=== PATIENT | male | born 2000 | race Caucasian/White ===

== ENCOUNTER 2021-05-27 07:18 | Outpatient (CLI) | payer OTHER, SELFPAY ==
--- NOTE | 2021-05-27 07:25 | USCV_ITS ---
BonnieMattParish Age: 20 Gender: M : 2000 Exam Date: 05/27/2021 07:30 Ordering Phys: Constantin Mccarthy MD Technologist: Ariadne Berrios [place] [facility] [place]: TACHY BP: / HR: 47 Rhythm: Sinus Technical Quality: Adequate MEASUREMENTS (Male / Female) Normal Values 2D ECHO LV Diastolic Diameter PLAX 3.5 cm 4.2 - 5.9 / 3.9 - 5.3 cm LV Systolic Diameter PLAX 3.2 cm LV Chamber Size 3.1 cm IVS Diastolic Thickness 1.0 cm 0.6 - 1.0 / 0.6 - 0.9 cm IVS Systolic Thickness 1.3 cm LVPW Diastolic Thickness 1.2 cm 0.6 - 1.0 / 0.6 - 0.9 cm LVPW Systolic Thickness 1.1 cm RV Chamber Size 2.9 cm LVOT Diameter 2.0 cm LV Ejection Fraction 2D Teich 17.3 % LV Ejection Fraction MOD 2C 54.2 % LV Ejection Fraction 2C AL 60.0 % LA Diameter 2.6 cm LA Width 3.2 cm LA Height 3.0 cm RA Width 4.1 cm RA Height 3.6 cm Aorta at Sinotubular Diameter 2.5 cm M-MODE LV Diastolic Diameter MM 4.5 cm 4.2 - 5.9 / 3.9 - 5.3 cm LV Systolic Diameter MM 2.8 cm LV Ejection Fraction MM Teich 68.7 % IVS Diastolic Thickness MM 1.0 cm 0.6 - 1.0 / 0.6 - 0.9 cm IVS Systolic Thickness MM 1.7 cm LVPW Diastolic Thickness MM 1.3 cm 0.6 - 1.0 / 0.6 - 0.9 cm LVPW Systolic Thickness MM 1.8 cm RV Diastolic Diameter MM 2.5 cm Aortic Annulus Diameter 2.9 cm LA Ao Ratio MM 1.2 MV E Point Septal Separation 0.6 cm DOPPLER AV Peak Velocity 127.0 cm/s LVOT Peak Velocity 88.0 cm/s AV Area Cont Eq vti 2.1 cm squared AV Area Cont Eq pk 2.2 cm squared MV Area PHT 3.3 cm squared Mitral E to A Ratio 1.9 MV E' Velocity 57.0 cm/s Mitral E to MV E' Ratio 9.9 Mitral E to LV E' Lateral Ratio 10.4 Mitral E to LV E' Septal Ratio 9.6 TR Peak Velocity 153.5 cm/s TR Peak Gradient 9.4 mmHg TR Mean Velocity 107.5 cm/s TR Mean Gradient 5.6 mmHg TR Velocity Time Integral 39.9 cm TV Peak E Velocity 91.0 cm/s Right Atrial Pressure 3.0 mmHg Pulmonary Artery Systolic Pressu 12.4 mmHg PV Peak Velocity 111.0 cm/s RV Acceleration Time 0.2 s RV Ejection Time 0.4 s RV AcT/ET 0.4 FINDINGS Left Ventricle Normal left ventricular cavity size. Normal left ventricular systolic function. No regional wall motion abnormalities. Left ventricular ejection fraction is estimated at 60 %. Normal diastolic function. Right Ventricle Normal right ventricular size. Normal right ventricular systolic function. Moduraor band noted Right Atrium The right atrium is normal in size. Left Atrium The left atrium is normal in size. Mitral Valve Structurally normal mitral valve without significant stenosis or prolapse. There is no mitral regurgitation. Aortic Valve Structurally normal aortic valve without significant sclerosis or stenosis. There is no aortic regurgitation. Tricuspid Valve Structurally normal tricuspid valve. No tricuspid valve stenosis. There appeared to be subvalvular 2.0 cm long mass noted, cannot rule out vegetation versus thrombus. Clinical correlation advised. Pulmonic Valve Mild pulmonary valve regurgitation. Serpentine movable mass noted in the pulmonary artery note cannot rule out vegetation versus thrombus. Clinical correlation advised Pericardium Normal pericardium without effusion. Aorta Normal ascending aorta dimension. CONCLUSIONS 1-Normal left ventricular cavity size. Normal left ventricular systolic function. No regional wall motion abnormalities. Left ventricular ejection fraction is estimated at 60 %. Normal diastolic function. 2-Structurally normal tricuspid valve. No tricuspid valve stenosis. There appeared to be subvalvular 2.0 cm long mass noted, cannot rule out vegetation versus thrombus. Clinical correlation advised. 3-Mild pulmonary valve regurgitation. Serpentine movable mass noted in the pulmonary artery note cannot rule out vegetation versus thrombus. Clinical correlation advised. 4-There is no pericardial effusion. 5-Right atrial pressure is around 5 mm of mercury. 6-Advise clinical correlation and transesophageal echocardiogram. Findings conveyed to Dr. Constantin Mccarthy . Mili Woody MD (Electronically Signed) Final Date: 27 May 2021 19:51 S
== END 2021-05-27 07:19 | disposition home or self-care (01) ==
LOC: US 07:22
PROVIDERS: PCP Family Medicine; Visit Provider Family Medicine
DX: R00.0 Tachycardia, unspecified (principal); I37.1 Nonrheumatic pulmonary valve insufficiency
CPT/HCPCS: 93306

== ENCOUNTER 2021-05-29 09:49 | Outpatient (CLI) | payer OTHER, SELFPAY ==
--- NOTE | 2021-05-29 10:15 | CT_ITS ---
WS: [id number] CTA scan of the chest with IV contrast. Additional two-dimensional coronal and sagittal reconstructio n and MIP images was performed. 05/29/2021 Clinical Data: ATRIAL THROMBOSIS Comparison: None. DLP: 766.[address] scans at [facility] use at least one of these dose optimization techniques: automat ed exposure control; mA and/or kV adjustment per patient size (includes targeted exams where dose is matched to clinical indication); or iterative reconstruction. Findings: The central pulmonary arteries and peripheral pulmonary arteries fill normally with no evidence of in traluminal filling defects. No pulmonary embolic disease is noted. No nodules, masses or effusions are seen. The heart size is normal with no pericardial effusion. The pulmonary arterial system and thoracic aorta demonstrate no abnormalities or dilatations. No pneumoni a or pneumothorax is seen. There is no axillary or significant mediastinal adenopathy. The thyroid gl and shows normal enhancement. The trachea bifurcates into the bronchi. The upper abdomen shows no abnormalities. The visualized liver, spleen, pancreas, gallbladder, adrena l glands and superior poles of the kidneys are not remarkable. The bones of the thoracic and upper lumbar spine are not remarkable. CT/CT angio chest PE protcl [id number] Impression: 1. Negative CTA of the chest. 2. No evidence of pulmonary embolic disease.
[2021-05-29] MEDS: iohexol 350 mg/mL 100 mL Btl IV (10:34)
--- NOTE | 2021-05-29 13:30 | US_ITS ---
WS: [id number] Complete ABDOMINAL ULTRASOUND HISTORY: IVC THROMBUS COMPARISON: None available. Liver: 15.4 cm in length. Liver is normal size and echogenicity with no mass or intrahepatic dilatati on. Gallbladder: Normally distended with no gallstones, wall thickening or pericholecystic fluid. Gallbladder wall thickness: 0.3 cm. Pancreas: Normal size and echogenicity. CBD: 0.2 cm. Right kidney: 12.1 cm x 4.5 cm x 4.4 cm. No mass, cortical thickening or hydronephrosis. Left kidney: 9.2 cm x 4.6 cm x 4.2 cm. No mass, cortical thickening or hydronephrosis. Spleen: Normal size and echogenicity. Abdominal aorta and IVC are within normal limits. No thrombus noted within the IVC. No ascites. US/US abdomen complete* [id number] IMPRESSION: Normal complete abdomen ultrasound. No thrombus noted within the IVC.
--- NOTE | 2021-05-29 14:30 | USCV_ITS ---
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 In addition, the posterior tibial veins were evaluated.. In addition, the posterior tibial and peroneal trunk were evaluated. Serial compression, augmentation maneuvers, and spectral Doppler flow evaluation were performed. FINDINGS: Normal 2-D Doppler and augmentation and compressibility throughout the lower extremity venous structures. Additional imaging through the proximal calf veins also reveals no thrombus. Limited evaluation of the greater saphenous vein is patent with no thrombus. CONCLUSIONS No DVT bilateral lower extremities. Dr. Roseanne Collazo DO (Electronically Signed) Final Date: 29 May 2021 15:07 S
== END 2021-05-29 09:50 | disposition home or self-care (01) ==
PROVIDERS: PCP Family Medicine; Visit Provider Family Medicine
DX: I51.3 Intracardiac thrombosis, not elsewhere classified (principal)
CPT/HCPCS: 71275; 76700; 93970; Q9967

== ENCOUNTER 2021-05-29 11:27 | Day surgery (SDC) | payer OTHER, SELFPAY ==
[2021-05-29 11:50] VITALS: BP 130/82; PULSE 60; RESP 18; TEMP 36.9; O2SAT 98; BMI 22.2
[2021-05-29] MEDS: sodium chloride 0.9% 1,000 ML 30 ML IV (11:59)
--- NOTE | 2021-05-29 12:07 | USCV_ITS ---
Parish Nicole Age: 20 Gender: M : 2000 Exam Date: 05/29/2021 13:12 Ordering Phys: Sal Gonzalez MD Technologist: WARREN Exam Location: [facility] [place]: THROMBUS BP: / HR: Rhythm: Sinus Technical Quality: Excellent MEASUREMENTS (Male / Female) Normal Values Medications Patient given IV sedation by anesthesia service, for details please refer to the anesthesia report. The patient was administered viscous Xylocaine 2%. Complications None. Proc. Components FINDINGS Left Ventricle Normal left ventricular cavity size. Normal left ventricular systolic function. No regional wall motion abnormalities. Left ventricular ejection fraction is estimated at 60 %. Right Ventricle Normal right ventricular size. Large serpentine 1.7 x 0.7 cm long echogenic flickering mass most likely suggestive of rudimentary eustachian valve or long Chiari network with questionable suspicion of thrombus noted. Less likely to be infective endocarditis in the absence of other parameters such as thromboembolic phenomenon and sepsis Right Atrium The right atrium is normal in size. Left Atrium The left atrium is normal in size. LA Appendage The LA appendage is normal. IA Septum Patent foramen ovale with color doppler. Mitral Valve Structurally normal mitral valve without significant stenosis or prolapse. There is no mitral regurgitation. Aortic Valve Structurally normal aortic valve without significant sclerosis or stenosis. There is no aortic regurgitation. Tricuspid Valve Structurally normal tricuspid valve without significant stenosis or regurgitation. Pulmonary artery systolic pressure is normal. Pulmonic Valve Structurally normal pulmonic valve without significant stenosis. There is no pulmonic regurgitation. Pericardium Normal pericardium without effusion. Aorta Normal ascending aorta dimension. CONCLUSIONS 1-Normal left ventricular cavity size. Normal left ventricular systolic function. No regional wall motion abnormalities. Left ventricular ejection fraction is estimated at 60 %. 2-Normal right ventricular size. Large serpentine 1.7 x 0.7 cm long echogenic flickering mass most likely suggestive of rudimentary eustachian valve or long Chiari network with questionable suspicion of thrombus noted. Less likely to be infective endocarditis in the absence of other parameters such as thromboembolic phenomenon and sepsis. 3-No significant valve abnormalities. 4-There is no pericardial effusion. 6-IVC noted to have echogenic mass which could be artifact versus thrombus, may further exploration with CT scan and MRI advised. 7-No prior transesophageal echo to compare with. 8-Further assessment with MRI of heart suggested to rule out thrombus in the right atrium advised. Mili Woody MD (Electronically Signed) Final Date: 31 May 2021 17:21 S
--- NOTE | 2021-05-29 12:17 | ANES.PREANE2 ---
Pre-Anesthetic Assessment Pre-Anesthetic Assessment: Height/Weight: Height 1.68 m Weight 62.596 kg Temp Pulse Resp BP Pulse Ox 98.5 F 60 18 130/82 98 05/29/21 11:50 05/29/21 11:50 05/29/21 11:50 05/29/21 11:50 05/29/21 11:50 Proposed Procedure: Operation Date: 05/29/21 13:00 Proposed Procedures p SHILO(Not Applicable) - Mili Woody MD Was Beta Marisela taken within 24 hours: N/A Was Clonidine taken within 24 hours: N/A Last intake: Intake Last Liquid Date 05/29/21 Last Liquid Time 08:00 Last Solid Date 05/28/21 Last Solid Time 00:00 Social: Social History: No alcohol and No tobacco Exam: Pre-Anes Outpt Exam: alert, oriented x 3, clear to auscultation bilaterally and regular rate & rhythm Airway: Submandibular: WNL Cervical ROM: WNL MP: 2 Dentition: Full History/ROS: No significant history except as noted Pulmonary: Comments: ??PE (gets tachy with running--more than normal). TTE showed possible RV/PA mobile mass. Anesthetic Plan: ASA status: 2 Anesthesia: MAC Risk of > 500 ml blood loss (7ml/kg in children): No Meds/Allergies Current Medications: Current Medications Generic Name Dose Route Start Last Admin Trade Name Freq PRN Reason Stop Dose Admin Sodium Chloride 1,000 mls @ 30 ml s/hr 05/29/21 11:45 05/29/21 11:59 Sodium Chloride 0.9% IV 05/30/21 11:44 30 mls/hr .Q24H ZARI Administration Data Anesthesia Cardiac Studies: Echocardiogram 05/27/21
--- NOTE | 2021-05-29 13:05 | W.PM.OPSFHP ---
Same Day Surgery H&P Indication for Procedure/HPI DATE OF PROCEDURE: May 29, 2021 CHIEF COMPLAINT/INDICATIONFOR SURGICAL PROCEDURE: Worsening of shortness of breath, suspicion for vegetation/thrombus abnormal echocardiogram PREOP DIAGNOSIS: Transesophageal echocardiogram for intracardiac mass PLANNED PROCEDRUE: Operation Date: 05/29/21 13:00 Proposed Procedures p SHILO(Not Applicable) - Mili Woody MD [id number] field checker for worsening of shortness of breath after viral-like illness and post Covid shot from [employer] had echocardiogram performed which showed ejection fraction normal but tricuspid valve appeared to be thickened and suspicious for vegetation versus artifact. Pulmonary artery was noted to have serpentine-like echogenic mass suspicious for thrombus. It is the reason CTA with contrast to rule out pulmonary embolism and pulmonary artery thrombus was also recommended by Dr. Licona. It was also recommended that patient should undergo transesophageal echocardiogram to assess right ventricle tricuspid mass to rule out vegetation and also to look into pulmonary artery for any thrombus. Patient is on apixaban. Patient and the family has been discussed in detail all risk benefit and alternative for the procedure along with for anesthesia by myself. They understand the risk of respiratory depression intubation bleeding tear of esophagus stomach during the procedure and abrasion laceration of airways. They understand and would like to proceed with it. Medications/Allergies* Erythromycin Home Medications Medication Instructions Recorded Confirmed Type apixaban [Eliquis] 5 mg PO DAILY 05/29/21 05/29/21 History Allergies/Adverse Reactions Allergy/AdvReac Type Severity Reaction Status Date / Time azithromycin Allergy ALGY-Rash Verified 05/29/21 11:46 Current Medications: Generic Name Dose Route Start Last Admin Trade Name Bradq PRN Reason Stop Dose Admin Sodium Chloride 1,000 mls @ 30 mls/hr 05/29/21 11:45 05/29/21 11:59 Sodium Chloride 0.9% IV 05/30/21 11:44 30 mls/hr .Q24H ZARI Administration Pertinent Exam Findings alert, oriented x 3, clear to auscultation bilaterally and regular rate & rhythm Recommendations Surgery/Procedure today Other Plans: We will proceed with transesophageal echocardiogram. Coding Level of Care Code Acute Planting Material Remover for Stefany Yan
[2021-05-29 13:36] VITALS: BP 123/65; PULSE 56; RESP 18; TEMP 37; O2SAT 98
[2021-05-29 14:05] VITALS: BP 118/72; PULSE 65; RESP 18; O2SAT 98
--- NOTE | 2021-05-29 14:20 | CT_ITS ---
WS: [id number] CT ABDOMEN AND PELVIS WITH AND WITHOUT CONTRAST HISTORY: Mass in the right atrium, mass in the right IVC TECHNIQUE: Unenhanced 5 mm axial imaging first performed through the abdomen. Post contrast imaging t hrough the abdomen and pelvis. Oral contrast has been provided. Sagittal and coronal reformats are s ubmitted. All CT scans at [facility] use at least one of these dose optimization techniqu es: automated exposure control; mA and/or kV adjustment per patient size (includes targeted exams whe re dose is matched to clinical indication); or iterative reconstruction. CONTRAST: Omnipaque 350; 7 mL IV. DLP: 1321.77 mGy.cm COMPARISON: None available. Lung bases are clear. Heart size is normal. No hiatal hernia. Normal enhancement of the liver, gallbladder, spleen and pancreas. Portal vein is patent. No adrenal mass. Kidneys are enhancing normally. No obstruction or mass identified. The IVC is top normal size at 2.9 cm in diameter. There is a curvilinear filling defect at the portal splenic vein confluence which could be a motion artifact or small amount of thrombus taking into con sideration the patient's history. There is motion artifact which may in part be due to peristalsis of the GI tract. No filling defects are noted within the IVC on this CT evaluation. Aorta is normal. No adenopathy. No ascites. Negative urinary bladder. No osseous abnormalities. Appendix not identified. CT/CT abdomen pelvis wo/w [id number] IMPRESSION: 1. No renal mass or obstruction. 2. Indeterminate but suspicious for intraluminal filling defect at the portal splenic vein confluence. 3. No evidence for GI ischemia. No ascites or adenopathy. Notified Mili Woody MD at 05/29/2021 4:05 PM. Message left on answering serv ice.
--- NOTE | 2021-05-29 14:42 | ANE.PACU2 ---
Inpatient post-anesthesia follow up: Airway intact: Yes Vital signs: Temperature 98.6 F Pulse Rate 65 Respiratory Rate 18 Blood Pressure 118/72 Pulse Oximetry 98 Oxygen Delivery Me thod Room Air Oxygen Flow Rate Fraction of Inspir ed Oxygen Hydration adequate: Yes Nausea and vomiting: No Pain level: 1 Mental status: Baseline
[2021-05-29 14:45] VITALS: BP 142/76; PULSE 65; RESP 20; O2SAT 100
[2021-05-29] MEDS: iohexol 300 mg/mL 50 mL Btl PO (14:48)
[2021-05-29 15:01] LABS: Basophils # 0.1 10^3/uL (0.0-0.1); Basophils % 0.7 %; Eosinophils # 0.2 10^3/uL (0.0-0.8); Eosinophils % 2.5 %; Hematocrit 50.5 % (42.0-52.0); Hemoglobin 17.5 g/dL (11.7-16.6); Lymphocytes % 29.2 %; Mean Corpuscular HGB Conc 34.7 g/dL (30.0-36.0); Mean Corpuscular Hemoglobin 30.4 pg (28.0-34.0); Mean Corpuscular Volume 87.8 fl (80-94); Mean Platelet Volume 9.7 fL (7.4-10.4); Monocytes # 0.4 10^3/uL (0.2-0.9); Monocytes % 6.4 %; Neutrophils # 4.11 10^3/uL (1.8-8.0); Neutrophils % 61.1 %; Nucleated Red Blood Cells % 0 %; Platelet Count 227 10^3/cmm (130-400); Red Blood Count 5.75 10^6/uL (4.1-5.3); Red Cell Distribution Width 12.3 % (12.1-15.1); White Blood Count 6.7 10^3/uL (4.5-13.0)
[2021-05-29 15:16] LABS: INR 1.27 (0.8-1.2)
[2021-05-29 15:17] LABS: Partial Thromboplastin Time 31.6 SECONDS (23.9-36.7)
[2021-05-29 15:19] LABS: D Dimer <= 0.27 ug/mIFEU (0-0.59)
[2021-05-29] MEDS: iohexol 300 mg/mL 100 mL Btl IV (15:45)
[2021-05-29 15:50] LABS: Alanine Aminotransferase 19 U/L (0-41); Alkaline Phosphatase 73 IU/L (40-130); Anion Gap 10.3 (5-19); Aspartate Amino Transferase 20 U/L (0-40); Blood Urea Nitrogen 13 mg/dL (6-20); Calcium 8.7 mg/dL (8.5-10.5); Carbon Dioxide 29 mmol/L (22-29); Chloride 105 mmol/L (98-107); Globulin 2.5 g/dL (1.3-4.6); Glomerular Filtration Rate 124.5 mL/min (90-130); Glucose 82 mg/dL (65-115); Osmolality Calculated 289 mOsm/kg (285-295); Potassium 4.3 mmol/L (3.5-5.1); Sodium 140 mmol/L (136-145); Total Bilirubin 0.6 mg/dL (0.15-1.2); Total Protein 6.5 g/dL (6.6-8.7)
--- NOTE | 2021-05-29 16:11 | PC.NURSE ---
[id number] and waited until done, then took patient to room 102 accompanied by parents. Got patient settled in bed with bed rails up x2. Instructed to stay in bed and use call light that was placed next to him. I notified Dr Woody that patient was in the room now and he said he would put orders in. Notified nurses that the patient was in the room with his parents. They will get to him ABRAHAM, they were very busy. Pt in no distress and has no complaints.
[2021-05-29 17:56] VITALS: BP 118/72; PULSE 65; RESP 18; O2SAT 98
--- NOTE | 2021-05-29 18:16 | PM.SDS ---
Short Stay Summary Providers Date of Admit/Discharge: 05/29/21 Attending Provider: Mili Woody MD Primary Care Provider: Constantin Mccarthy MD Chief Complaint: Koko HPI History of Present Illness Parish Nicole is a 20 year old male past medical history significant for no major medical problems except childhood asthma for worsening of shortness of breath post Covid vaccine and after 1 week of viral-like illness was progressively getting short of breath it is the reason he underwent echocardiogram which showed questionable thrombus versus eustachian valve in the right atrium and pulmonary artery. CTA as per PE protocol rule out pulmonary embolism. Transesophageal echocardiogram was performed which showed large serpentine rudimentary flickering echogenic structure in the right atrium with question of rudimentary eustachian valve versus thrombus. Abdominal ultrasound ruled out renal mass portal venous thrombosis, DVT and IVC thrombus. CT scan of the abdomen and pelvis also ruled out any significant pathology including thrombus. Blood work-up showed normal D-dimer PT/INR mildly elevated due to being apixaban. I have also discussed the case with Dr. uHmble Caruso cardiac surgeon at [facility], at this point we have planned that MRI will be obtained as an outpatient to rule out thrombus versus intracardiac mass versus a abnormal variant of eustachian valve. I have detailed discussion with the patient and both parents by bedside multiple times today regarding each and every test differential diagnosis and my suspicion of possible eustachian valve and about outpatient MRI at [facility] as we do not have the availability and service which I confirmed with my radiologist. They are in agreement with me. They would like to proceed accordingly. I have also discussed with Dr. Gonzalez all my findings and recommendations. He will going to follow-up with the patient on Tuesday. Patient and parents have been told that they can contact me anytime as I am on-call over the weekend if there is any problem or question. Patient has been advised to keep an eye on any symptoms such as chest pain or shortness of breath. At this point we will continue apixaban 5 mg twice a day. Patient and family has been advised in case of blood in urine and stool they should let us know since he is on blood thinner. I will discharge patient now home today. He has been advised not to perform any strenuous activity including running and jogging until he will be cleared after MRI. Home Meds/Allergies Home Medications and Allergies Allergies Allergy/AdvReac Type Severity Reaction Status Date / Time azithromycin Allergy ALGY-Rash Verified 05/29/21 11:46 Vitals/I&O/Wt Last Vital Signs Temp 98.6 F 05/29/21 13:36 Pulse 65 05/29/21 17:56 Resp 18 05/29/21 17:56 BP 118/72 05/29/21 17:56 Pulse Ox 98 05/29/21 17:56 Weight last 48 hrs Weight 138 lb Physical Exam Narrative: EXAM NARRATIVE: GENERAL: Patient is alert, awake and oriented x3. NECK: No jugular vein distension. HEENT: No cyanosis. No icterus. No pallor. HEART: Regular S1 and S2. No murmur, rub or gallop. LUNGS: Clear to auscultate bilaterally. ABDOMEN: Soft, nontender and nondistended. Positive bowel sounds. No guarding, rebound or tenderness. CENTRAL NERVOUS SYSTEM: Grossly nonfocal. EXTREMITIES: Lower extremities without edema bilaterally. Hospital Course Admission Diagnoses As above SSS Data Data Completed and Pending: Completed Studies During Hospitalization Category Date Time Status CT abdomen pelvis wo/w [id number] Routin e Cat Scan 05/29/21 14:20 Completed Pending at discharge Category Date Time Status CV. echo transeso phageal [id number] Rout ine Ultrasound 05/29/21 12:07 Taken Discharge Plan Discharge Patient Disposition: Home Condition: Stable Prescriptions: Changed Eliquis 5 mg tablet 5 mg PO BIDWM Qty: 30 RF: 2 Discharge Orders: Discharge Order (Routine); Ordered 05/29/21 Ordered By: Mili Woody Discharge Diet: Regular Patient Instructions: Apixaban (By mouth), Opioid Safety Activity Restrictions/Additional Instructions: No strenuous activity including jogging or running until MRI rule out thrombus in the right atrium. You will be scheduled to see Dr. Humble Rao cardiac surgeon in [place] at [facility] over next few days. We will schedule you to obtain MRI at [facility] to rule out thrombus/ intracardiac mass in the right atrium. If you notice blood in the urine stool please inform Dr. Woody's office. Please follow-up with Dr. Gonzalez as scheduled early next week. Follow-up with Ms. Delphine Coley cardiology nurse practitioner in 7 days. Attestations Medical Necessity Statement*: Patient can be discharged home Time Spent in Patient Care*: greater than 30 min Specific Discharge Activities: Specific discharge activities: educating patient and educating and/or supporting family/caregiver Quality Metrics Clinical Quality Measures: During this hospital stay, did patient experience: None Coding Level of Care Code New Pt Acute Supervisor Elementary Education for Chg Fwd Patient Type New History Comprehensive Exam Comprehensive Medical Decision Making High Complexity
[2021-05-29 18:22] VITALS: BP 118/72; PULSE 65; RESP 18; O2SAT 98
--- NOTE | 2021-05-29 18:26 | PC.NURSE ---
pt came to room 102 from gi lab at 1445...to await results of ct scan.ct scan read and dr baer came to see pt.states he can go home.followup mri at [facility].instructed in caesar.pt verb understanding of instruction.discharged to home.
== END 2021-05-29 18:37 | disposition home or self-care (01) ==
LOC: GILAB 11:36 → CSU 17:59
PROVIDERS: PCP Family Medicine; Visit Provider Internal Medicine Cardiovascular Disease
PROC: (CPT 93312; principal; 2021-05-29 13:00)
DX: R06.02 Shortness of breath (principal)
CPT/HCPCS: 36415; 74178; 80053; 85025; 85378; 85610; 85730; 93312; 93318; 93320; 93325; 96360; 96361; J2704; J7030; Q9967